=== PATIENT | male | born 1940 | race Asian ===

== ENCOUNTER 2022-03-25 14:21 | Inpatient (IN) | payer OTHER ==
[~2022-03-25] VITALS: Ht 162.6 cm; Wt 54.0 kg
[2022-03-25 14:27] VITALS: BP_SYST 158
[2022-03-25] MEDS ORDERED: methylPREDNISolone SOD SUCC/PF 62.5 MG/ML VIAL IVP ONE (15:30)
[2022-03-25] MEDS ORDERED: IPRATROPIUM/ALBUTEROL SULFATE 3 ML AMPUL.NEB (DUONEB) INH ONE (15:30)
[2022-03-25 16:04] LABS: BASOPHILS % (AUTO) 0.3 % (0.0-2.0); EOSINOPHILS % (AUTO) 0.1 % (0.0-4.0); HEMATOCRIT 39.4 % (36-54); HEMOGLOBIN 13.4 g/dL (14.0-18.0); LYMPHOCYTES # (AUTO) 0.6 K/uL (1.0-5.5); MEAN CORPUSCULAR HEMOGLOBIN 32 pg (27-31); MEAN CORPUSCULAR HGB CONC 34 % (32-36); MEAN CORPUSCULAR VOLUME 95 fL (79.0-98.0); MONOCYTES # (AUTO) 0.5 K/uL (0.0-1.0); MONOCYTES % (AUTO) 5.1 % (1.7-9.3); NEUTROPHILS # (AUTO) 7.9 K/uL (1.8-7.7); NEUTROPHILS % (AUTO) 87.5 % (40.0-70.0); PLATELET COUNT (AUTO) 219 K/uL (130-430); RED BLOOD CELL COUNT(AUTO) 4.16 MIL/uL (4.2-6.2); RED CELL DISTRIBUTION WIDTH 13.1 % (9.0-15.0)
[2022-03-25 16:14] LABS: ANION GAP 10 (5-15); CALCIUM 8.4 mg/dL (8.4-11.0); CHLORIDE 100 mmol/L (98-107); CREATININE 0.75 mg/dL (0.55-1.30); GLUCOSE 97 mg/dL (70-99); POTASSIUM 3.2 mmol/L (3.5-5.1); PROTHROMBIN TIME 9.7 SECS (9.5-12.5); SODIUM SERUM 135 mmol/L (136-145); UREA NITROGEN, BLOOD 13 mg/dL (8-21)
[2022-03-25 16:38] LABS: ALANINE AMINOTRANSFERASE 37 U/L (12-78); ALBUMIN 3.2 g/dL (3.4-4.8); ASPARTATE AMINOTRANSFERASE 32 U/L (10-37); LIPASE 152 U/L (73-393)
[2022-03-25] MEDS ORDERED: LORazepam 2 MG/ML VIAL IVP ONE (17:00)
[2022-03-25 20:39] LABS: BILIRUBIN,URINE NEGATIVE (NEGATIVE); BLOOD, URINE NEGATIVE (NEGATIVE); CLARITY/URINE CLEAR (CLEAR); COLOR,URINE YELLOW (YELLOW); GLUCOSE,URINE NEGATIVE (NEGATIVE); KETONES,URINE NEGATIVE (NEGATIVE); LEUKOCYTE ESTERASE ,URINE NEGATIVE (NEGATIVE); NITRITE, URINE NEGATIVE (NEGATIVE); PH,URINE 6.5 (5.0-8.0); PROTEIN URINE NEGATIVE (NEGATIVE); UROBILINOGEN,URINE 0.2 (0.2-1.0)
[2022-03-25] MEDS ORDERED: LABETALOL HCL 20 MG/4 ML CARTRIDGE IVP ONE ×2 (21:15→22:45)
[2022-03-25] MEDS ORDERED: cefTRIAXone 1 GM IVPB PREMIX 50 ML IV ONE (21:45)
[2022-03-25] MEDS ORDERED: POTASSIUM CHLORIDE 20 MEQ/PKT PACKET PO ONE (21:45)
[2022-03-25] MEDS ORDERED: NACL 0.9% 1,000 ML IV ONE (21:45)
[2022-03-25] MEDS: NACL 0.9% 1,000 ML IV SCH (22:30)
[2022-03-25] MEDS ORDERED: METOPROLOL TARTRATE 25 MG TABLET PO ONE (22:30)
[2022-03-25] MEDS ORDERED: hydrALAZINE HCL 20 MG/ML VIAL IVP ONE (22:45)
[2022-03-25] MEDS: IPRATROPIUM/ALBUTEROL SULFATE 3 ML AMPUL.NEB (DUONEB) INH PRN (22:56)
[2022-03-26 00:13] VITALS: BP_SYST 160
[2022-03-26 01:00] VITALS: BP_SYST 168
[2022-03-26] MEDS ORDERED: cloNIDine HCL 0.2 MG TABLET PO PRN ×2 (02:00→02:45)
[2022-03-26 04:15] VITALS: BP_SYST 193
[2022-03-26] MEDS: IPRATROPIUM/ALBUTEROL SULFATE 3 ML AMPUL.NEB (DUONEB) INH PRN (05:19)
[2022-03-26 06:52] LABS: BASOPHILS % (AUTO) 0.1 % (0.0-2.0); HEMOGLOBIN 13.5 g/dL (14.0-18.0); LYMPHOCYTES # (AUTO) 0.7 K/uL (1.0-5.5); LYMPHOCYTES % (AUTO) 9.7 % (20.5-51.5); MEAN CORPUSCULAR HEMOGLOBIN 33 pg (27-31); MEAN CORPUSCULAR HGB CONC 35 % (32-36); MEAN CORPUSCULAR VOLUME 95 fL (79.0-98.0); MONOCYTES % (AUTO) 0.7 % (1.7-9.3); NEUTROPHILS # (AUTO) 6.1 K/uL (1.8-7.7); NEUTROPHILS % (AUTO) 89.5 % (40.0-70.0); PLATELET COUNT (AUTO) 204 K/uL (130-430); RED BLOOD CELL COUNT(AUTO) 4.13 MIL/uL (4.2-6.2); WHITE BLOOD COUNT (AUTO) 6.8 K/uL (4.8-10.8)
[2022-03-26 07:28] LABS: ANION GAP 13 (5-15); CALCIUM 7.9 mg/dL (8.4-11.0); CHLORIDE 103 mmol/L (98-107); CREATININE 0.77 mg/dL (0.55-1.30); GLUCOSE 122 mg/dL (70-99); POTASSIUM 3.9 mmol/L (3.5-5.1); SODIUM SERUM 137 mmol/L (136-145); UREA NITROGEN, BLOOD 17 mg/dL (8-21)
[2022-03-26] MEDS: METOPROLOL TARTRATE 25 MG TABLET PO SCH ×2 (08:55→20:39)
[2022-03-26] MEDS: HYDROCHLOROTHIAZIDE 25 MG TABLET (HCTZ) PO SCH (08:55)
[2022-03-26] MEDS: lisinopriL 20 MG TABLET PO SCH (08:56)
[2022-03-26 11:31] VITALS: BP_SYST 156
[2022-03-26] MEDS ORDERED: DILT180C67 PO (11:37)
[2022-03-26] MEDS ORDERED: LISI20TA30 PO (11:37)
[2022-03-26] MEDS ORDERED: MONT10TA22 (11:40)
[2022-03-26] MEDS ORDERED: ALBMDI INH (11:40)
[2022-03-26] MEDS ORDERED: VITD2000 PO (11:44)
[2022-03-26] MEDS ORDERED: ROFL500T PO (11:44)
[2022-03-26] MEDS ORDERED: BETA1TAB20 PO (11:44)
[2022-03-26] MEDS ORDERED: PRED5TAB PO (11:44)
[2022-03-26] MEDS ORDERED: PANT40SU2 (11:44)
[2022-03-26] MEDS ORDERED: IPRA3AMP9 INH (11:44)
[2022-03-26] MEDS ORDERED: OMEG10006 PO (11:44)
[2022-03-26] MEDS ORDERED: VITA1CAP PO (11:44)
[2022-03-26] MEDS ORDERED: TAMS-11 PO (11:44)
[2022-03-26] MEDS ORDERED: LIPA1CAP13 PO (11:48)
[2022-03-26] MEDS ORDERED: SERT-436 PO (12:30)
[2022-03-26 16:02] VITALS: BP_SYST 141
[2022-03-26] MEDS: NACL 0.9% 1,000 ML IV SCH (20:04)
[2022-03-26] MEDS: predniSONE 20 MG TABLET PO SCH (20:05)
[2022-03-26 20:31] VITALS: BP_SYST 155
[2022-03-26] MEDS ORDERED: ZOLPIDEM TARTRATE 5 MG TABLET PO PRN (22:45)
[2022-03-27 00:07] VITALS: BP_SYST 126
[2022-03-27 01:44] VITALS: BP_SYST 132
[2022-03-27] MEDS: IPRATROPIUM/ALBUTEROL SULFATE 3 ML AMPUL.NEB (DUONEB) INH PRN (02:08)
[2022-03-27] MEDS: NACL 0.9% 1,000 ML IV SCH (03:06)
[2022-03-27 06:46] LABS: BASOPHILS % (AUTO) 0.1 % (0.0-2.0); HEMATOCRIT 40.6 % (36-54); HEMOGLOBIN 13.8 g/dL (14.0-18.0); LYMPHOCYTES # (AUTO) 1.5 K/uL (1.0-5.5); LYMPHOCYTES % (AUTO) 12.1 % (20.5-51.5); MEAN CORPUSCULAR HEMOGLOBIN 32 pg (27-31); MEAN CORPUSCULAR HGB CONC 34 % (32-36); MEAN CORPUSCULAR VOLUME 95 fL (79.0-98.0); MONOCYTES # (AUTO) 0.8 K/uL (0.0-1.0); NEUTROPHILS # (AUTO) 10.4 K/uL (1.8-7.7); NEUTROPHILS % (AUTO) 81.8 % (40.0-70.0); PLATELET COUNT (AUTO) 223 K/uL (130-430); RED BLOOD CELL COUNT(AUTO) 4.26 MIL/uL (4.2-6.2); RED CELL DISTRIBUTION WIDTH 13.1 % (9.0-15.0); WHITE BLOOD COUNT (AUTO) 12.8 K/uL (4.8-10.8)
[2022-03-27 08:50] LABS: ANION GAP 11 (5-15); CALCIUM 7.9 mg/dL (8.4-11.0); CHLORIDE 102 mmol/L (98-107); CREATININE 0.74 mg/dL (0.55-1.30); GLUCOSE 76 mg/dL (70-99); SODIUM SERUM 137 mmol/L (136-145); UREA NITROGEN, BLOOD 23 mg/dL (8-21)
[2022-03-27 09:23] LABS: POTASSIUM 2.7 mmol/L (3.5-5.1)
[2022-03-27] MEDS ORDERED: POTASSIUM CHLORIDE 20 MEQ TAB.PRT.SR PO ONE (09:30)
[2022-03-27] MEDS: HYDROCHLOROTHIAZIDE 25 MG TABLET (HCTZ) PO SCH (09:32)
[2022-03-27] MEDS: lisinopriL 20 MG TABLET PO SCH (09:33)
[2022-03-27] MEDS: predniSONE 20 MG TABLET PO SCH (09:33)
[2022-03-27] MEDS: METOPROLOL TARTRATE 25 MG TABLET PO SCH (09:33)
[2022-03-27] MEDS ORDERED: LISI10TA29 PO (09:36)
[2022-03-27] MEDS ORDERED: PRED10TA PO ×2 (09:36)
[2022-03-27] MEDS ORDERED: PRED20TA PO (09:42)
[2022-03-27 12:45] VITALS: BP_SYST 178
[2022-03-27] MEDS ORDERED: hydrALAZINE HCL 20 MG/ML VIAL IVP ONE (15:45)
[2022-03-27 15:50] VITALS: BP_SYST 147
[2022-03-27 16:20] VITALS: BP_SYST 159
== END 2022-03-27 17:00 | disposition home health service (06) | DRG 189 ==
LOC: EDBD 14:21 → SED 14:21 → EDSEX 14:21 → STU 22:19
PROVIDERS: ADMIT General Practice; ATTEND General Practice
DX: J96.00 Acute respiratory failure, unspecified whether with hypoxia or hypercapnia (principal); G93.41 Metabolic encephalopathy; J44.1 Chronic obstructive pulmonary disease with (acute) exacerbation; E44.0 Moderate protein-calorie malnutrition; E87.2 Acidosis; E87.6 Hypokalemia; Z20.822 Contact with and (suspected) exposure to COVID-19; I10 Essential (primary) hypertension; Z86.73 Personal history of transient ischemic attack (TIA), and cerebral infarction without residual deficits; Z87.891 Personal history of nicotine dependence; Z99.81 Dependence on supplemental oxygen; Z68.20 Body mass index [BMI] 20.0-20.9, adult
CPT/HCPCS: 36415; 36600; 70450-TC; 71045; 71250-TC; 76376; 80048; 80053; 81003; 82803-TC; 83036; 83605; 83690; 83735; 83880; 84484; 85025; 85610-TC; 85730-TC; 87040; 87086; 93005; 94640; 96374; 96375; 99291; G0378; J0360; J0696; J2060; J2930; J7512

== ENCOUNTER 2023-09-04 15:06 | Inpatient (IN) | payer OTHER ==
[~2023-09-04] VITALS: Ht 162.6 cm; Wt 63.5 kg
[~2023-09-04 15:06] MED LIST: ALBMDI INH; BETA1TAB20 PO; DILT180C67 PO; IPRA3AMP9 INH; LIPA1CAP13 PO; LISI10TA29 PO; LISI20TA30 PO; MONT-47; OMEG10006 PO; PANT40SU2; PRED20TA PO; PRED5TAB PO; ROFL500T PO; SERT-436 PO; TAMS-11 PO; VITA1CAP PO; VITD2000 PO
[2023-09-04 15:10] VITALS: RESP 19; TEMP 98; O2SAT 95
[2023-09-04] MEDS ORDERED: ALBUTEROL SULFATE 0.083% 2.5 MG/3 ML VIAL.NEB INH ONE ×2 (15:30→18:00)
[2023-09-04] MEDS ORDERED: methylPREDNISolone SOD SUCC/PF 62.5 MG/ML VIAL IVP ONE (15:30)
[2023-09-04] MEDS ORDERED: IPRATROPIUM BROM 0.5 MG/2.5 ML VIAL.NEB (ATROVENT) INH ONE ×2 (15:30→18:00)
[2023-09-04] MEDS ORDERED: MAGNESIUM SULFATE 50 ML IV ONE (15:45)
[2023-09-04 16:42] LABS: BASOPHILS % (AUTO) 0.2 % (0.0-2.0); EOSINOPHILS % (AUTO) 0.2 % (0.0-4.0); HEMATOCRIT 38.9 % (36-54); HEMOGLOBIN 13.6 g/dL (14.0-18.0); LYMPHOCYTES # (AUTO) 1.8 K/uL (1.0-5.5); LYMPHOCYTES % (AUTO) 19.2 % (20.5-51.5); MEAN CORPUSCULAR HEMOGLOBIN 33 pg (27-31); MEAN CORPUSCULAR HGB CONC 35 % (32-36); MEAN CORPUSCULAR VOLUME 95 fL (79.0-98.0); MONOCYTES # (AUTO) 0.9 K/uL (0.0-1.0); MONOCYTES % (AUTO) 9.5 % (1.7-9.3); NEUTROPHILS # (AUTO) 6.5 K/uL (1.8-7.7); NEUTROPHILS % (AUTO) 70.9 % (40.0-70.0); PLATELET COUNT (AUTO) 190 K/uL (130-430); RED CELL DISTRIBUTION WIDTH 12.9 % (9.0-15.0); WHITE BLOOD COUNT (AUTO) 9.2 K/uL (4.8-10.8)
[2023-09-04 16:50] LABS: ALANINE AMINOTRANSFERASE 65 U/L (12-78); ALBUMIN 2.7 g/dL (3.4-4.8); ANION GAP 17 (5-15); ASPARTATE AMINOTRANSFERASE 112 U/L (10-37); BILIRUBIN,DIRECT 0.5 mg/dL (0.0-0.3); CARBON DIOXIDE 22 mmol/L (23-29); CHLORIDE 97 mmol/L (98-107); CREATININE 1.41 mg/dL (0.55-1.30); GLUCOSE 65 mg/dL (74-106); SODIUM SERUM 136 mmol/L (136-145); TOTAL BILIRUBIN 1.3 mg/dL (0.0-1.0); TOTAL PROTEIN, SERUM 6.3 g/dL (6.4-8.3); UREA NITROGEN, BLOOD 23 mg/dL (8-21)
[2023-09-04 16:54] LABS: POTASSIUM 2.6 mmol/L (3.5-5.1)
[2023-09-04] MEDS ORDERED: POTASSIUM CHLORIDE 20 MEQ/PKT PACKET PO ONE (17:15)
[2023-09-04 18:20] LABS: THYROID STIMULATING HORMONE 0.55 uIu/mL (0.34-4.82)
[2023-09-04] MEDS ORDERED: cefTRIAXone 1 GM IVPB PREMIX 50 ML IV ONE (18:30)
[2023-09-04] MEDS ORDERED: IPRATROPIUM/ALBUTEROL SULFATE 3 ML AMPUL.NEB (DUONEB) INH ONE (19:30)
[2023-09-04 20:38] LABS: INFLUENZA TYPE A Negative (NEGATIVE); INFLUENZA TYPE B NEGATIVE (NEGATIVE)
[2023-09-05] VITALS (7 sets, daily range): BP systolic 150–157; PULSE 90–99; RESP 19–24; TEMP 97.2–98.3; O2SAT 92–100
[2023-09-05 08:16] LABS: BASOPHILS % (AUTO) 0.1 % (0.0-2.0); HEMATOCRIT 40.1 % (36-54); HEMOGLOBIN 13.8 g/dL (14.0-18.0); LYMPHOCYTES # (AUTO) 0.5 K/uL (1.0-5.5); LYMPHOCYTES % (AUTO) 5.9 % (20.5-51.5); MEAN CORPUSCULAR HEMOGLOBIN 33 pg (27-31); MEAN CORPUSCULAR HGB CONC 34 % (32-36); MEAN CORPUSCULAR VOLUME 95 fL (79.0-98.0); MONOCYTES # (AUTO) 0.1 K/uL (0.0-1.0); MONOCYTES % (AUTO) 1.9 % (1.7-9.3); NEUTROPHILS # (AUTO) 7.3 K/uL (1.8-7.7); NEUTROPHILS % (AUTO) 92.1 % (40.0-70.0); PLATELET COUNT (AUTO) 218 K/uL (130-430); RED BLOOD CELL COUNT(AUTO) 4.23 MIL/uL (4.2-6.2); RED CELL DISTRIBUTION WIDTH 12.9 % (9.0-15.0); WHITE BLOOD COUNT (AUTO) 7.9 K/uL (4.8-10.8)
[2023-09-05 08:38] LABS: ALANINE AMINOTRANSFERASE 78 U/L (12-78); ALBUMIN 2.8 g/dL (3.4-4.8); ANION GAP 14 (5-15); ASPARTATE AMINOTRANSFERASE 132 U/L (10-37); CALCIUM 9.1 mg/dL (8.4-11.0); CARBON DIOXIDE 22 mmol/L (23-29); CHLORIDE 101 mmol/L (98-107); GLUCOSE 113 mg/dL (74-106); POTASSIUM 4.8 mmol/L (3.5-5.1); SODIUM SERUM 137 mmol/L (136-145); TOTAL BILIRUBIN 0.8 mg/dL (0.0-1.0); TOTAL PROTEIN, SERUM 6.7 g/dL (6.4-8.3); UREA NITROGEN, BLOOD 35 mg/dL (8-21)
[2023-09-05] MEDS ORDERED: cefTRIAXone 1 GM IVPB PREMIX 50 ML IV SCH (09:00)
[2023-09-05 13:35] LABS: BLOOD GAS BASE EXCESS -4.5 mmol/L (-3.0-3.0); BLOOD GAS HCO3 19.6 mmol/L (21.0-27.0); BLOOD GAS PCO2 33.5 mmHg (32.0-45.0); BLOOD GAS PH 7.384 (7.350-7.450); BLOOD GAS PO2 152.8 mmHg (75.0-100.0)
[2023-09-05] MEDS ORDERED: IPRATROPIUM/ALBUTEROL SULFATE 3 ML AMPUL.NEB (DUONEB) ONE (13:42)
[2023-09-05] MEDS ORDERED: ALBUTEROL SULFATE 0.083% 2.5 MG/3 ML VIAL.NEB INH PRN (13:45)
[2023-09-05 13:56] LABS: ALLEN'S TEST POSITIVE (P)
[2023-09-05] MEDS ORDERED: AZITHROMYCIN 500 MG in NS 250 ML IV ONE (14:00)
[2023-09-05] MEDS ORDERED: methylPREDNISolone SOD SUCC/PF 62.5 MG/ML VIAL IVP ONE (14:00)
[2023-09-05] MEDS: IPRATROPIUM/ALBUTEROL SULFATE 3 ML AMPUL.NEB (DUONEB) INH SCH ×2 (16:41→19:41)
[2023-09-05] MEDS: methylPREDNISolone SOD SUCC/PF 62.5 MG/ML VIAL IVP SCH (18:07)
[2023-09-05] MEDS: BUDESONIDE 0.5 MG/2 ML AMPUL.NEB INH SCH (19:41)
[2023-09-05] MEDS: PIPERACILLIN/TAZO 2.25G/DEX-IS 50 ML IV SCH (19:44)
[2023-09-06] VITALS (8 sets, daily range): BP systolic 143–152; PULSE 101–109; RESP 18–20; TEMP 97.7–99; O2SAT 93–98
[2023-09-06] MEDS: IPRATROPIUM/ALBUTEROL SULFATE 3 ML AMPUL.NEB (DUONEB) INH SCH ×7 (00:10→23:39)
[2023-09-06] MEDS: methylPREDNISolone SOD SUCC/PF 62.5 MG/ML VIAL IVP SCH ×4 (00:48→19:12)
[2023-09-06] MEDS: PIPERACILLIN/TAZO 2.25G/DEX-IS 50 ML IV SCH ×4 (00:49→19:12)
[2023-09-06 06:14] LABS: BASOPHILS % (AUTO) 0.1 % (0.0-2.0); HEMOGLOBIN 13.3 g/dL (14.0-18.0); MEAN CORPUSCULAR VOLUME 95 fL (79.0-98.0); NEUTROPHILS % (AUTO) 92.6 % (40.0-70.0)
[2023-09-06 06:18] LABS: ANION GAP 18 (5-15); CALCIUM 8.8 mg/dL (8.4-11.0); CARBON DIOXIDE 20 mmol/L (23-29); CHLORIDE 104 mmol/L (98-107); CREATININE 1.36 mg/dL (0.55-1.30); GLUCOSE 74 mg/dL (74-106); POTASSIUM 4.3 mmol/L (3.5-5.1); SODIUM SERUM 142 mmol/L (136-145); UREA NITROGEN, BLOOD 50 mg/dL (8-21)
[2023-09-06 06:23] LABS: ALANINE AMINOTRANSFERASE 88 U/L (12-78); ALBUMIN 2.7 g/dL (3.4-4.8); ASPARTATE AMINOTRANSFERASE 157 U/L (10-37); LACTATE DEHYDROGENASE 384 U/L (85-227); TOTAL BILIRUBIN 0.7 mg/dL (0.0-1.0); TOTAL PROTEIN, SERUM 6.3 g/dL (6.4-8.3)
[2023-09-06 07:33] LABS: WHITE BLOOD COUNT (AUTO) 13.7 K/uL (4.8-10.8)
[2023-09-06 07:34] LABS: HEMATOCRIT 38.9 % (36-54); MEAN CORPUSCULAR HEMOGLOBIN 32 pg (27-31); MEAN CORPUSCULAR HGB CONC 34 % (32-36); PLATELET COUNT (AUTO) 255 K/uL (130-430); RED BLOOD CELL COUNT(AUTO) 4.11 MIL/uL (4.2-6.2); RED CELL DISTRIBUTION WIDTH 12.9 % (9.0-15.0)
[2023-09-06 07:35] LABS: MONOCYTES % (AUTO) 3.3 % (1.7-9.3); NEUTROPHILS # (AUTO) 12.7 K/uL (1.8-7.7)
[2023-09-06 07:36] LABS: LYMPHOCYTES # (AUTO) 0.5 K/uL (1.0-5.5); MONOCYTES # (AUTO) 0.5 K/uL (0.0-1.0)
[2023-09-06] MEDS: BUDESONIDE 0.5 MG/2 ML AMPUL.NEB INH SCH ×2 (07:50→19:30)
[2023-09-06] MEDS: ASCORBIC ACID 500 MG TABLET PO SCH ×2 (10:00→20:46)
[2023-09-06] MEDS: CHOLECALCIFEROL (VITAMIN D3) 2,000 UNIT TABLET PO SCH (10:00)
[2023-09-06] MEDS: AZITHROMYCIN 250 MG in NS 250 ML IV SCH (14:41)
[2023-09-07] VITALS (10 sets, daily range): BP systolic 141–149; PULSE 87–108; RESP 18–20; TEMP 98–98.6; O2SAT 93–97
[2023-09-07] MEDS: IPRATROPIUM/ALBUTEROL SULFATE 3 ML AMPUL.NEB (DUONEB) INH SCH ×6 (03:32→23:40)
[2023-09-07] MEDS: PIPERACILLIN/TAZO 2.25G/DEX-IS 50 ML IV SCH ×4 (06:00→17:10)
[2023-09-07] MEDS: methylPREDNISolone SOD SUCC/PF 62.5 MG/ML VIAL IVP SCH ×4 (06:00→17:09)
[2023-09-07 07:01] LABS: ALANINE AMINOTRANSFERASE 94 U/L (12-78); ALBUMIN 2.7 g/dL (3.4-4.8); ANION GAP 17 (5-15); ASPARTATE AMINOTRANSFERASE 119 U/L (10-37); CALCIUM 8.9 mg/dL (8.4-11.0); CARBON DIOXIDE 23 mmol/L (23-29); CHLORIDE 110 mmol/L (98-107); CREATININE 1.16 mg/dL (0.55-1.30); GLUCOSE 101 mg/dL (74-106); PHOSPHORUS 2.6 mg/dL (2.7-4.5); POTASSIUM 4.2 mmol/L (3.5-5.1); SODIUM SERUM 150 mmol/L (136-145); TOTAL BILIRUBIN 0.9 mg/dL (0.0-1.0); UREA NITROGEN, BLOOD 50 mg/dL (8-21)
[2023-09-07] MEDS: BUDESONIDE 0.5 MG/2 ML AMPUL.NEB INH SCH ×2 (07:30→20:05)
[2023-09-07 08:31] LABS: HEMATOCRIT 40.5 % (36-54); HEMOGLOBIN 13.6 g/dL (14.0-18.0); LYMPHOCYTES # (AUTO) 0.3 K/uL (1.0-5.5); LYMPHOCYTES % (AUTO) 2.2 % (20.5-51.5); MEAN CORPUSCULAR HEMOGLOBIN 32 pg (27-31); MEAN CORPUSCULAR HGB CONC 34 % (32-36); MEAN CORPUSCULAR VOLUME 96 fL (79.0-98.0); MONOCYTES # (AUTO) 0.7 K/uL (0.0-1.0); MONOCYTES % (AUTO) 5.9 % (1.7-9.3); NEUTROPHILS # (AUTO) 11.5 K/uL (1.8-7.7); NEUTROPHILS % (AUTO) 91.9 % (40.0-70.0); PLATELET COUNT (AUTO) 275 K/uL (130-430); RED BLOOD CELL COUNT(AUTO) 4.23 MIL/uL (4.2-6.2); RED CELL DISTRIBUTION WIDTH 12.9 % (9.0-15.0); WHITE BLOOD COUNT (AUTO) 12.5 K/uL (4.8-10.8)
[2023-09-07] MEDS: CHOLECALCIFEROL (VITAMIN D3) 2,000 UNIT TABLET PO SCH (09:18)
[2023-09-07] MEDS: ASCORBIC ACID 500 MG TABLET PO SCH ×2 (09:18→20:33)
[2023-09-07 10:02] LABS: ABG O2 SAT% ESTIMATE 97.8 % (94.0-100.0); BLOOD GAS BASE EXCESS 2.4 mmol/L (-3.0-3.0); BLOOD GAS HCO3 24.8 mmol/L (21.0-27.0); BLOOD GAS PCO2 32.1 mmHg (32.0-45.0); BLOOD GAS PO2 94.1 mmHg (75.0-100.0)
[2023-09-07 10:08] LABS: BLOOD GAS PH 7.505 (7.350-7.450)
[2023-09-07] MEDS: AZITHROMYCIN 250 MG in NS 250 ML IV SCH (13:45)
[2023-09-07] MEDS: FAMOTIDINE PF 20 MG/2 ML VIAL IVP SCH (17:09)
[2023-09-08] VITALS (13 sets, daily range): BP systolic 138–147; PULSE 103–118; RESP 19–20; TEMP 97.6–98.6; O2SAT 93–98
[2023-09-08] MEDS: methylPREDNISolone SOD SUCC/PF 62.5 MG/ML VIAL IVP SCH ×4 (01:20→19:03)
[2023-09-08] MEDS: PIPERACILLIN/TAZO 2.25G/DEX-IS 50 ML IV SCH ×5 (01:21→23:52)
[2023-09-08] MEDS: IPRATROPIUM/ALBUTEROL SULFATE 3 ML AMPUL.NEB (DUONEB) INH SCH ×6 (03:16→23:25)
[2023-09-08 05:58] LABS: EOSINOPHILS % (AUTO) 0.1 % (0.0-4.0); HEMOGLOBIN 14.9 g/dL (14.0-18.0); LYMPHOCYTES # (AUTO) 0.3 K/uL (1.0-5.5); LYMPHOCYTES % (AUTO) 3.1 % (20.5-51.5); MEAN CORPUSCULAR HEMOGLOBIN 33 pg (27-31); MEAN CORPUSCULAR HGB CONC 35 % (32-36); MEAN CORPUSCULAR VOLUME 95 fL (79.0-98.0); MONOCYTES # (AUTO) 0.3 K/uL (0.0-1.0); MONOCYTES % (AUTO) 2.6 % (1.7-9.3); NEUTROPHILS # (AUTO) 10.5 K/uL (1.8-7.7); NEUTROPHILS % (AUTO) 94.2 % (40.0-70.0); PLATELET COUNT (AUTO) 252 K/uL (130-430); RED BLOOD CELL COUNT(AUTO) 4.55 MIL/uL (4.2-6.2); WHITE BLOOD COUNT (AUTO) 11.2 K/uL (4.8-10.8)
[2023-09-08 06:27] LABS: ANION GAP 15 (5-15); CALCIUM 8.3 mg/dL (8.4-11.0); CARBON DIOXIDE 27 mmol/L (23-29); CHLORIDE 110 mmol/L (98-107); GLUCOSE 122 mg/dL (74-106); POTASSIUM 3.9 mmol/L (3.5-5.1); SODIUM SERUM 152 mmol/L (136-145); UREA NITROGEN, BLOOD 44 mg/dL (8-21)
[2023-09-08] MEDS: BUDESONIDE 0.5 MG/2 ML AMPUL.NEB INH SCH ×2 (07:47→19:56)
[2023-09-08] MEDS: CHOLECALCIFEROL (VITAMIN D3) 2,000 UNIT TABLET PO SCH (09:40)
[2023-09-08] MEDS: ASCORBIC ACID 500 MG TABLET PO SCH ×2 (09:40→20:36)
[2023-09-08] MEDS: AZITHROMYCIN 250 MG in NS 250 ML IV SCH (15:03)
[2023-09-08] MEDS: FAMOTIDINE PF 20 MG/2 ML VIAL IVP SCH (17:12)
[2023-09-09] VITALS (11 sets, daily range): BP systolic 124–155; PULSE 77–114; RESP 20–22; TEMP 97.3–98.8; O2SAT 95–100
[2023-09-09] MEDS: methylPREDNISolone SOD SUCC/PF 62.5 MG/ML VIAL IVP SCH ×5 (00:29→23:46)
[2023-09-09] MEDS: IPRATROPIUM/ALBUTEROL SULFATE 3 ML AMPUL.NEB (DUONEB) INH SCH ×6 (04:11→23:20)
[2023-09-09] MEDS: PIPERACILLIN/TAZO 2.25G/DEX-IS 50 ML IV SCH ×4 (05:53→23:46)
[2023-09-09] MEDS: BUDESONIDE 0.5 MG/2 ML AMPUL.NEB INH SCH ×2 (07:38→19:25)
[2023-09-09] MEDS: ASCORBIC ACID 500 MG TABLET PO SCH ×2 (10:24→21:10)
[2023-09-09] MEDS: CHOLECALCIFEROL (VITAMIN D3) 2,000 UNIT TABLET PO SCH (10:24)
[2023-09-09] MEDS: AZITHROMYCIN 250 MG in NS 250 ML IV SCH (13:34)
[2023-09-09] MEDS: FAMOTIDINE PF 20 MG/2 ML VIAL IVP SCH (17:35)
[2023-09-10] VITALS (12 sets, daily range): BP systolic 149–158; PULSE 89–104; RESP 16–21; TEMP 97.7–98.2; O2SAT 92–99
[2023-09-10] MEDS: IPRATROPIUM/ALBUTEROL SULFATE 3 ML AMPUL.NEB (DUONEB) INH SCH ×5 (03:19→23:12)
[2023-09-10] MEDS: methylPREDNISolone SOD SUCC/PF 62.5 MG/ML VIAL IVP SCH ×3 (06:05→17:31)
[2023-09-10] MEDS: PIPERACILLIN/TAZO 2.25G/DEX-IS 50 ML IV SCH ×3 (06:05→17:31)
[2023-09-10 06:16] LABS: BASOPHILS % (AUTO) 0.1 % (0.0-2.0); HEMATOCRIT 41.1 % (36-54); HEMOGLOBIN 14.1 g/dL (14.0-18.0); LYMPHOCYTES # (AUTO) 0.3 K/uL (1.0-5.5); LYMPHOCYTES % (AUTO) 3.3 % (20.5-51.5); MEAN CORPUSCULAR HEMOGLOBIN 33 pg (27-31); MEAN CORPUSCULAR HGB CONC 34 % (32-36); MEAN CORPUSCULAR VOLUME 95 fL (79.0-98.0); MONOCYTES # (AUTO) 0.3 K/uL (0.0-1.0); MONOCYTES % (AUTO) 3.6 % (1.7-9.3); NEUTROPHILS # (AUTO) 7.4 K/uL (1.8-7.7); PLATELET COUNT (AUTO) 166 K/uL (130-430); RED BLOOD CELL COUNT(AUTO) 4.34 MIL/uL (4.2-6.2); RED CELL DISTRIBUTION WIDTH 12.7 % (9.0-15.0); WHITE BLOOD COUNT (AUTO) 7.9 K/uL (4.8-10.8)
[2023-09-10 06:42] LABS: ALANINE AMINOTRANSFERASE 67 U/L (12-78); ALBUMIN 2.4 g/dL (3.4-4.8); ANION GAP 10 (5-15); ASPARTATE AMINOTRANSFERASE 48 U/L (10-37); CALCIUM 7.8 mg/dL (8.4-11.0); CARBON DIOXIDE 30 mmol/L (23-29); CHLORIDE 108 mmol/L (98-107); CREATININE 0.92 mg/dL (0.55-1.30); GLUCOSE 144 mg/dL (74-106); PHOSPHORUS 2.1 mg/dL (2.7-4.5); SODIUM SERUM 148 mmol/L (136-145); TOTAL BILIRUBIN 1.7 mg/dL (0.0-1.0); TOTAL PROTEIN, SERUM 4.9 g/dL (6.4-8.3); UREA NITROGEN, BLOOD 32 mg/dL (8-21)
[2023-09-10 06:51] LABS: POTASSIUM 2.8 mmol/L (3.5-5.1)
[2023-09-10] MEDS ORDERED: POTASSIUM CHLORIDE 40 MEQ in NS 250 ML IV ONE (07:00)
[2023-09-10] MEDS: BUDESONIDE 0.5 MG/2 ML AMPUL.NEB INH SCH ×2 (08:33→19:44)
[2023-09-10] MEDS: ASCORBIC ACID 500 MG TABLET PO SCH ×2 (09:05→23:02)
[2023-09-10] MEDS: CHOLECALCIFEROL (VITAMIN D3) 2,000 UNIT TABLET PO SCH (09:05)
[2023-09-10] MEDS: AZITHROMYCIN 250 MG in NS 250 ML IV SCH (14:20)
[2023-09-10] MEDS: FAMOTIDINE PF 20 MG/2 ML VIAL IVP SCH (17:31)
[2023-09-11] VITALS (14 sets, daily range): BP systolic 138–155; PULSE 98–112; RESP 17–20; TEMP 97.6–98.1; O2SAT 92–99
[2023-09-11] MEDS: methylPREDNISolone SOD SUCC/PF 62.5 MG/ML VIAL IVP SCH ×3 (00:17→13:04)
[2023-09-11] MEDS: PIPERACILLIN/TAZO 2.25G/DEX-IS 50 ML IV SCH ×5 (00:18→23:00)
[2023-09-11] MEDS: IPRATROPIUM/ALBUTEROL SULFATE 3 ML AMPUL.NEB (DUONEB) INH SCH ×6 (03:22→23:07)
[2023-09-11] MEDS: BUDESONIDE 0.5 MG/2 ML AMPUL.NEB INH SCH ×2 (07:28→19:31)
[2023-09-11] MEDS: CHOLECALCIFEROL (VITAMIN D3) 2,000 UNIT TABLET PO SCH (09:44)
[2023-09-11] MEDS: ASCORBIC ACID 500 MG TABLET PO SCH ×2 (09:45→21:08)
[2023-09-11] MEDS: FAMOTIDINE PF 20 MG/2 ML VIAL IVP SCH (18:19)
[2023-09-11] MEDS: METHYLPREDNISOLONE SOD SUCC 40 MG/ML VIAL IVP SCH (21:08)
[2023-09-11] MEDS: cloNIDine HCL 0.1 MG TABLET PO PRN (23:00)
[2023-09-12] VITALS (15 sets, daily range): BP systolic 139–145; PULSE 92–99; RESP 18–19; TEMP 98–98.2; O2SAT 92–98
[2023-09-12] MEDS: IPRATROPIUM/ALBUTEROL SULFATE 3 ML AMPUL.NEB (DUONEB) INH SCH ×6 (04:03→22:54)
[2023-09-12] MEDS: PIPERACILLIN/TAZO 2.25G/DEX-IS 50 ML IV SCH ×3 (05:33→15:44)
[2023-09-12] MEDS: METHYLPREDNISOLONE SOD SUCC 40 MG/ML VIAL IVP SCH ×3 (05:33→21:23)
[2023-09-12] MEDS: BUDESONIDE 0.5 MG/2 ML AMPUL.NEB INH SCH ×2 (07:44→19:39)
[2023-09-12] MEDS: ASCORBIC ACID 500 MG TABLET PO SCH ×2 (08:37→21:23)
[2023-09-12] MEDS: CHOLECALCIFEROL (VITAMIN D3) 2,000 UNIT TABLET PO SCH (08:37)
[2023-09-12] MEDS: FAMOTIDINE PF 20 MG/2 ML VIAL IVP SCH (14:40)
[2023-09-13] VITALS (12 sets, daily range): BP systolic 134–170; PULSE 100–115; RESP 20–26; TEMP 97.3–98.8; O2SAT 94–99
[2023-09-13] MEDS: PIPERACILLIN/TAZO 2.25G/DEX-IS 50 ML IV SCH ×4 (00:51→16:09)
[2023-09-13] MEDS: IPRATROPIUM/ALBUTEROL SULFATE 3 ML AMPUL.NEB (DUONEB) INH SCH ×6 (03:41→23:07)
[2023-09-13] MEDS: METHYLPREDNISOLONE SOD SUCC 40 MG/ML VIAL IVP SCH ×2 (05:17→21:42)
[2023-09-13] MEDS: BUDESONIDE 0.5 MG/2 ML AMPUL.NEB INH SCH ×2 (07:46→20:31)
[2023-09-13] MEDS: ASCORBIC ACID 500 MG TABLET PO SCH ×2 (10:19→21:42)
[2023-09-13] MEDS: CHOLECALCIFEROL (VITAMIN D3) 2,000 UNIT TABLET PO SCH (10:19)
[2023-09-13] MEDS: FAMOTIDINE PF 20 MG/2 ML VIAL IVP SCH (16:09)
[2023-09-13] MEDS: MIRTAZAPINE 15 MG TABLET PO SCH (21:42)
[2023-09-14] VITALS (15 sets, daily range): BP systolic 134–169; PULSE 98–107; RESP 19–22; TEMP 97.6–98.2; O2SAT 95–99
[2023-09-14] MEDS: IPRATROPIUM/ALBUTEROL SULFATE 3 ML AMPUL.NEB (DUONEB) INH SCH ×6 (03:26→23:23)
[2023-09-14 06:18] LABS: BASOPHILS % (AUTO) 0.2 % (0.0-2.0); HEMATOCRIT 43.4 % (36-54); HEMOGLOBIN 14.6 g/dL (14.0-18.0); LYMPHOCYTES # (AUTO) 0.2 K/uL (1.0-5.5); MEAN CORPUSCULAR HEMOGLOBIN 32 pg (27-31); MEAN CORPUSCULAR HGB CONC 34 % (32-36); MEAN CORPUSCULAR VOLUME 95 fL (79.0-98.0); MONOCYTES # (AUTO) 0.5 K/uL (0.0-1.0); MONOCYTES % (AUTO) 2.2 % (1.7-9.3); NEUTROPHILS # (AUTO) 22.6 K/uL (1.8-7.7); NEUTROPHILS % (AUTO) 96.6 % (40.0-70.0); PLATELET COUNT (AUTO) 160 K/uL (130-430); RED BLOOD CELL COUNT(AUTO) 4.55 MIL/uL (4.2-6.2); RED CELL DISTRIBUTION WIDTH 12.7 % (9.0-15.0)
[2023-09-14] MEDS: PIPERACILLIN/TAZO 2.25G/DEX-IS 50 ML IV SCH ×5 (07:15→22:52)
[2023-09-14 07:20] LABS: ALANINE AMINOTRANSFERASE 70 U/L (12-78); ALBUMIN 2.3 g/dL (3.4-4.8); ANION GAP 8 (5-15); ASPARTATE AMINOTRANSFERASE 51 U/L (10-37); CALCIUM 8.8 mg/dL (8.4-11.0); CARBON DIOXIDE 30 mmol/L (23-29); CHLORIDE 105 mmol/L (98-107); CREATININE 0.87 mg/dL (0.55-1.30); GLUCOSE 158 mg/dL (74-106); POTASSIUM 3.8 mmol/L (3.5-5.1); SODIUM SERUM 143 mmol/L (136-145); TOTAL BILIRUBIN 1.6 mg/dL (0.0-1.0); TOTAL PROTEIN, SERUM 4.9 g/dL (6.4-8.3); UREA NITROGEN, BLOOD 27 mg/dL (8-21)
[2023-09-14] MEDS: BUDESONIDE 0.5 MG/2 ML AMPUL.NEB INH SCH ×2 (07:56→20:28)
[2023-09-14 08:56] LABS: WHITE BLOOD COUNT (AUTO) 23.4 K/uL (4.8-10.8)
[2023-09-14] MEDS: CHOLECALCIFEROL (VITAMIN D3) 2,000 UNIT TABLET PO SCH (08:56)
[2023-09-14] MEDS: METHYLPREDNISOLONE SOD SUCC 40 MG/ML VIAL IVP SCH ×2 (08:56→21:59)
[2023-09-14] MEDS: ASCORBIC ACID 500 MG TABLET PO SCH ×2 (08:56→21:58)
[2023-09-14] MEDS: FAMOTIDINE PF 20 MG/2 ML VIAL IVP SCH (17:55)
[2023-09-14] MEDS: MIRTAZAPINE 15 MG TABLET PO SCH (21:59)
[2023-09-14] MEDS: cloNIDine HCL 0.1 MG TABLET PO PRN (22:18)
[2023-09-15] VITALS (13 sets, daily range): BP systolic 128–150; PULSE 94–99; RESP 16–24; TEMP 96.8–98.5; O2SAT 92–98
[2023-09-15] MEDS: IPRATROPIUM/ALBUTEROL SULFATE 3 ML AMPUL.NEB (DUONEB) INH SCH ×6 (03:21→23:16)
[2023-09-15] MEDS: PIPERACILLIN/TAZO 2.25G/DEX-IS 50 ML IV SCH ×3 (05:50→17:06)
[2023-09-15] MEDS: BUDESONIDE 0.5 MG/2 ML AMPUL.NEB INH SCH ×2 (07:41→19:40)
[2023-09-15] MEDS: ASCORBIC ACID 500 MG TABLET PO SCH ×2 (08:47→21:26)
[2023-09-15] MEDS: METHYLPREDNISOLONE SOD SUCC 40 MG/ML VIAL IVP SCH ×2 (08:47→21:26)
[2023-09-15] MEDS: CHOLECALCIFEROL (VITAMIN D3) 2,000 UNIT TABLET PO SCH (08:47)
[2023-09-15] MEDS: FAMOTIDINE PF 20 MG/2 ML VIAL IVP SCH (17:00)
[2023-09-15] MEDS ORDERED: MILK OF MAGNESIA 30 ML UDC PO PRN (17:00)
[2023-09-15] MEDS: MIRTAZAPINE 15 MG TABLET PO SCH (21:26)
[2023-09-16] VITALS (12 sets, daily range): BP systolic 124–158; PULSE 47–106; RESP 16–28; TEMP 97.2–97.7; O2SAT 92–100
[2023-09-16] MEDS: PIPERACILLIN/TAZO 2.25G/DEX-IS 50 ML IV SCH ×5 (00:01→23:17)
[2023-09-16] MEDS: IPRATROPIUM/ALBUTEROL SULFATE 3 ML AMPUL.NEB (DUONEB) INH SCH ×6 (03:26→23:08)
[2023-09-16] MEDS: BUDESONIDE 0.5 MG/2 ML AMPUL.NEB INH SCH ×2 (07:31→19:34)
[2023-09-16] MEDS: CHOLECALCIFEROL (VITAMIN D3) 2,000 UNIT TABLET PO SCH (09:38)
[2023-09-16] MEDS: predniSONE 20 MG TABLET PO SCH (09:38)
[2023-09-16] MEDS: ASCORBIC ACID 500 MG TABLET PO SCH ×2 (09:38→21:07)
[2023-09-16] MEDS ORDERED: TAMSULOSIN HCL 0.4 MG CAP PO ONE (10:00)
[2023-09-16] MEDS ORDERED: LISINOPRIL 10 MG TABLET (PRINIVIL) PO ONE (10:00)
[2023-09-16] MEDS: FAMOTIDINE PF 20 MG/2 ML VIAL IVP SCH (18:40)
[2023-09-16] MEDS: MIRTAZAPINE 15 MG TABLET PO SCH (21:07)
[2023-09-17] VITALS (12 sets, daily range): BP systolic 103–130; PULSE 74–93; RESP 17–18; TEMP 96.9–98.4; O2SAT 90–99
[2023-09-17] MEDS: IPRATROPIUM/ALBUTEROL SULFATE 3 ML AMPUL.NEB (DUONEB) INH SCH ×6 (03:26→22:43)
[2023-09-17] MEDS: PIPERACILLIN/TAZO 2.25G/DEX-IS 50 ML IV SCH ×4 (05:06→23:55)
[2023-09-17 05:17] LABS: BASOPHILS % (AUTO) 0.1 % (0.0-2.0); LYMPHOCYTES # (AUTO) 0.6 K/uL (1.0-5.5); LYMPHOCYTES % (AUTO) 2.4 % (20.5-51.5); MEAN CORPUSCULAR HEMOGLOBIN 33 pg (27-31); MEAN CORPUSCULAR HGB CONC 34 % (32-36); MEAN CORPUSCULAR VOLUME 95 fL (79.0-98.0); MONOCYTES # (AUTO) 1.8 K/uL (0.0-1.0); MONOCYTES % (AUTO) 6.9 % (1.7-9.3); NEUTROPHILS # (AUTO) 22.9 K/uL (1.8-7.7); NEUTROPHILS % (AUTO) 90.6 % (40.0-70.0); PLATELET COUNT (AUTO) 133 K/uL (130-430); RED BLOOD CELL COUNT(AUTO) 4.31 MIL/uL (4.2-6.2); RED CELL DISTRIBUTION WIDTH 12.9 % (9.0-15.0); WHITE BLOOD COUNT (AUTO) 25.3 K/uL (4.8-10.8)
[2023-09-17 05:20] LABS: ANION GAP 6 (5-15); CALCIUM 10.1 mg/dL (8.4-11.0); CARBON DIOXIDE 35 mmol/L (23-29); CHLORIDE 107 mmol/L (98-107); CREATININE 1.37 mg/dL (0.55-1.30); GLUCOSE 126 mg/dL (74-106); POTASSIUM 3.7 mmol/L (3.5-5.1); SODIUM SERUM 148 mmol/L (136-145); UREA NITROGEN, BLOOD 46 mg/dL (8-21)
[2023-09-17] MEDS: BUDESONIDE 0.5 MG/2 ML AMPUL.NEB INH SCH ×2 (07:51→22:43)
[2023-09-17] MEDS: CHOLECALCIFEROL (VITAMIN D3) 2,000 UNIT TABLET PO SCH ×2 (09:00→10:31)
[2023-09-17] MEDS: predniSONE 20 MG TABLET PO SCH ×2 (09:00→10:31)
[2023-09-17] MEDS: LISINOPRIL 10 MG TABLET (PRINIVIL) PO SCH ×2 (09:00→10:32)
[2023-09-17] MEDS: TAMSULOSIN HCL 0.4 MG CAP PO SCH ×2 (09:00→10:31)
[2023-09-17] MEDS: ASCORBIC ACID 500 MG TABLET PO SCH ×3 (09:00→21:00)
[2023-09-17] MEDS ORDERED: NS 500 ML IV ONE (15:15)
[2023-09-17] MEDS: FAMOTIDINE PF 20 MG/2 ML VIAL IVP SCH (17:26)
[2023-09-17] MEDS: NACL 0.9% 1,000 ML IV SCH (17:28)
[2023-09-17 18:29] LABS: BILIRUBIN,URINE NEGATIVE (NEGATIVE); CLARITY/URINE CLEAR (CLEAR); COLOR,URINE YELLOW (YELLOW); GLUCOSE,URINE NEGATIVE (NEGATIVE); KETONES,URINE NEGATIVE (NEGATIVE); LEUKOCYTE ESTERASE ,URINE NEGATIVE (NEGATIVE); NITRITE, URINE NEGATIVE (NEGATIVE); PROTEIN URINE TRACE (NEGATIVE); UROBILINOGEN,URINE 0.2 (0.2-1.0)
[2023-09-17 18:32] LABS: BLOOD, URINE TRACE (NEGATIVE)
[2023-09-17 19:00] LABS: BACTERIA,URINE FEW /HPF (None Seen); WBC,URINE 0-3 /HPF (0-3)
[2023-09-17] MEDS: MIRTAZAPINE 15 MG TABLET PO SCH (21:00)
[2023-09-18] VITALS (10 sets, daily range): BP systolic 111–157; PULSE 88–105; RESP 16–20; TEMP 98.3–99.4; O2SAT 92–100
[2023-09-18] MEDS: IPRATROPIUM/ALBUTEROL SULFATE 3 ML AMPUL.NEB (DUONEB) INH SCH ×6 (03:11→23:11)
[2023-09-18] MEDS: NACL 0.9% 1,000 ML IV SCH (05:02)
[2023-09-18] MEDS: PIPERACILLIN/TAZO 2.25G/DEX-IS 50 ML IV SCH ×3 (05:56→17:18)
[2023-09-18 07:21] LABS: HEMOGLOBIN 13.8 g/dL (14.0-18.0); MEAN CORPUSCULAR HGB CONC 33 % (32-36); PLATELET COUNT (AUTO) 100 K/uL (130-430)
[2023-09-18] MEDS: BUDESONIDE 0.5 MG/2 ML AMPUL.NEB INH SCH ×2 (07:44→19:54)
[2023-09-18 07:53] LABS: HEMATOCRIT 42.5 % (36-54); MEAN CORPUSCULAR HEMOGLOBIN 32 pg (27-31); MEAN CORPUSCULAR VOLUME 97 fL (79.0-98.0); RED BLOOD CELL COUNT(AUTO) 4.39 MIL/uL (4.2-6.2); RED CELL DISTRIBUTION WIDTH 13.1 % (9.0-15.0)
[2023-09-18 07:54] LABS: ALANINE AMINOTRANSFERASE 75 U/L (12-78); ALBUMIN 1.9 g/dL (3.4-4.8); ANION GAP 18 (5-15); ASPARTATE AMINOTRANSFERASE 58 U/L (10-37); CALCIUM 8.7 mg/dL (8.4-11.0); CARBON DIOXIDE 22 mmol/L (23-29); CHLORIDE 114 mmol/L (98-107); POTASSIUM 4.4 mmol/L (3.5-5.1); SODIUM SERUM 154 mmol/L (136-145); TOTAL BILIRUBIN 2.3 mg/dL (0.0-1.0); TOTAL PROTEIN, SERUM 4.4 g/dL (6.4-8.3); UREA NITROGEN, BLOOD 43 mg/dL (8-21)
[2023-09-18 08:29] LABS: GLUCOSE 34 mg/dL (74-106)
[2023-09-18] MEDS ORDERED: DEXTROSE 50% JECT 50 ML DISP.SYRIN IVP ONE (08:30)
[2023-09-18 08:50] LABS: WHITE BLOOD COUNT (AUTO) 39.4 K/uL (4.8-10.8)
[2023-09-18] MEDS: TAMSULOSIN HCL 0.4 MG CAP PO SCH (09:00)
[2023-09-18] MEDS: ASCORBIC ACID 500 MG TABLET PO SCH (09:00)
[2023-09-18] MEDS: predniSONE 20 MG TABLET PO SCH (09:00)
[2023-09-18] MEDS: LISINOPRIL 10 MG TABLET (PRINIVIL) PO SCH (09:00)
[2023-09-18] MEDS: CHOLECALCIFEROL (VITAMIN D3) 2,000 UNIT TABLET PO SCH (09:00)
[2023-09-18] MEDS: LORazepam 2 MG/ML VIAL IVP PRN (10:23)
[2023-09-18 10:49] LABS: BAND % (MANUAL) 2 % (0-6); BASOPHILS % (MANUAL) 0 % (0-2); EOSINOPHILS % (MANUAL) 0 % (0-7); LYMPHOCYTES % (MANUAL) 1 % (20-46); MONOCYTES % (MANUAL) 2 % (0-11); PLATELET ESTIMATE DECREASED (ADEQUATE)
[2023-09-18] MEDS: D5/0.45 NS 1,000 ML IV SCH (10:58)
[2023-09-18] MEDS: FAMOTIDINE PF 20 MG/2 ML VIAL IVP SCH (17:18)
[2023-09-19] VITALS (13 sets, daily range): BP systolic 113–152; PULSE 88–103; RESP 15–22; TEMP 97.5–99.2; O2SAT 85–96
[2023-09-19] MEDS: MIRTAZAPINE 15 MG TABLET PO SCH ×2 (00:34→20:48)
[2023-09-19] MEDS: ASCORBIC ACID 500 MG TABLET PO SCH ×3 (00:34→20:48)
[2023-09-19] MEDS: PIPERACILLIN/TAZO 2.25G/DEX-IS 50 ML IV SCH ×5 (00:35→23:56)
[2023-09-19] MEDS: D5/0.45 NS 1,000 ML IV SCH ×2 (03:33→16:00)
[2023-09-19] MEDS: IPRATROPIUM/ALBUTEROL SULFATE 3 ML AMPUL.NEB (DUONEB) INH SCH ×6 (03:39→23:07)
[2023-09-19] MEDS: BUDESONIDE 0.5 MG/2 ML AMPUL.NEB INH SCH ×2 (07:09→19:47)
[2023-09-19 07:53] LABS: BASOPHILS % (AUTO) 0.1 % (0.0-2.0); EOSINOPHILS % (AUTO) 0.1 % (0.0-4.0); HEMATOCRIT 38.3 % (36-54); HEMOGLOBIN 12.9 g/dL (14.0-18.0); LYMPHOCYTES # (AUTO) 0.7 K/uL (1.0-5.5); LYMPHOCYTES % (AUTO) 2.4 % (20.5-51.5); MEAN CORPUSCULAR HEMOGLOBIN 33 pg (27-31); MEAN CORPUSCULAR HGB CONC 34 % (32-36); MEAN CORPUSCULAR VOLUME 97 fL (79.0-98.0); MONOCYTES # (AUTO) 0.8 K/uL (0.0-1.0); MONOCYTES % (AUTO) 2.6 % (1.7-9.3); NEUTROPHILS # (AUTO) 27.6 K/uL (1.8-7.7); PLATELET COUNT (AUTO) 99 K/uL (130-430); RED BLOOD CELL COUNT(AUTO) 3.96 MIL/uL (4.2-6.2); WHITE BLOOD COUNT (AUTO) 29.1 K/uL (4.8-10.8)
[2023-09-19 07:59] LABS: ANION GAP 9 (5-15); CALCIUM 8.8 mg/dL (8.4-11.0); CARBON DIOXIDE 30 mmol/L (23-29); CHLORIDE 117 mmol/L (98-107); CREATININE 1.23 mg/dL (0.55-1.30); GLUCOSE 78 mg/dL (74-106); NEUTROPHILS % (AUTO) 94.8 % (40.0-70.0); SODIUM SERUM 156 mmol/L (136-145); UREA NITROGEN, BLOOD 27 mg/dL (8-21)
[2023-09-19 08:05] LABS: POTASSIUM 2.7 mmol/L (3.5-5.1)
[2023-09-19] MEDS: CHOLECALCIFEROL (VITAMIN D3) 2,000 UNIT TABLET PO SCH (10:19)
[2023-09-19] MEDS: TAMSULOSIN HCL 0.4 MG CAP PO SCH (10:19)
[2023-09-19] MEDS: predniSONE 20 MG TABLET PO SCH (10:19)
[2023-09-19] MEDS: POTASSIUM CHLORIDE 30 MEQ in NS 250 ML IV SCH ×2 (10:20→15:06)
[2023-09-19] MEDS: LISINOPRIL 10 MG TABLET (PRINIVIL) PO SCH (10:20)
[2023-09-19] MEDS: FAMOTIDINE PF 20 MG/2 ML VIAL IVP SCH (17:22)
[2023-09-20] VITALS (14 sets, daily range): BP systolic 107–173; PULSE 85–99; RESP 18–40; TEMP 97.5–99; O2SAT 94–98
[2023-09-20] MEDS: D5/0.45 NS 1,000 ML IV SCH ×3 (01:34→22:24)
[2023-09-20] MEDS: IPRATROPIUM/ALBUTEROL SULFATE 3 ML AMPUL.NEB (DUONEB) INH SCH ×6 (03:19→23:01)
[2023-09-20] MEDS: PIPERACILLIN/TAZO 2.25G/DEX-IS 50 ML IV SCH ×3 (05:06→17:05)
[2023-09-20] MEDS: BUDESONIDE 0.5 MG/2 ML AMPUL.NEB INH SCH ×2 (07:28→19:23)
[2023-09-20 07:45] LABS: BASOPHILS # (AUTO) 0.1 K/uL (0.0-0.2); BASOPHILS % (AUTO) 0.3 % (0.0-2.0); EOSINOPHILS % (AUTO) 0.2 % (0.0-4.0); HEMOGLOBIN 10.9 g/dL (14.0-18.0); LYMPHOCYTES # (AUTO) 0.6 K/uL (1.0-5.5); LYMPHOCYTES % (AUTO) 2.8 % (20.5-51.5); MEAN CORPUSCULAR HEMOGLOBIN 32 pg (27-31); MEAN CORPUSCULAR HGB CONC 33 % (32-36); MEAN CORPUSCULAR VOLUME 97 fL (79.0-98.0); MONOCYTES # (AUTO) 0.5 K/uL (0.0-1.0); MONOCYTES % (AUTO) 2.4 % (1.7-9.3); NEUTROPHILS # (AUTO) 19.2 K/uL (1.8-7.7); PLATELET COUNT (AUTO) 85 K/uL (130-430); RED BLOOD CELL COUNT(AUTO) 3.39 MIL/uL (4.2-6.2); WHITE BLOOD COUNT (AUTO) 20.4 K/uL (4.8-10.8)
[2023-09-20 07:53] LABS: NEUTROPHILS % (AUTO) 94.3 % (40.0-70.0)
[2023-09-20 07:58] LABS: ANION GAP 8 (5-15); CALCIUM 8.7 mg/dL (8.4-11.0); CARBON DIOXIDE 27 mmol/L (23-29); CREATININE 1.02 mg/dL (0.55-1.30); GLUCOSE 171 mg/dL (74-106); SODIUM SERUM 155 mmol/L (136-145); UREA NITROGEN, BLOOD 28 mg/dL (8-21)
[2023-09-20 07:59] LABS: CHLORIDE 120 mmol/L (98-107)
[2023-09-20 08:59] LABS: PHOSPHORUS 2.1 mg/dL (2.7-4.5)
[2023-09-20] MEDS: CHOLECALCIFEROL (VITAMIN D3) 2,000 UNIT TABLET PO SCH ×2 (09:00→09:52)
[2023-09-20] MEDS: LISINOPRIL 10 MG TABLET (PRINIVIL) PO SCH ×2 (09:00→09:53)
[2023-09-20] MEDS: predniSONE 20 MG TABLET PO SCH ×2 (09:00→09:52)
[2023-09-20] MEDS: ASCORBIC ACID 500 MG TABLET PO SCH ×3 (09:00→22:19)
[2023-09-20] MEDS ORDERED: ALBUTEROL SULFATE 0.083% 2.5 MG/3 ML VIAL.NEB INH PRN (09:00)
[2023-09-20] MEDS: TAMSULOSIN HCL 0.4 MG CAP PO SCH ×2 (09:00→09:54)
[2023-09-20] MEDS ORDERED: POTASSIUM CHLORIDE 40 MEQ in 0.45% NS 250 ML IV ONE (10:00)
[2023-09-20] MEDS ORDERED: POTASSIUM CHLORIDE 40 MEQ, LIDOCAINE JECT 2% PF 100 MG 50 MG in NS 250 ML IV ONE (10:30)
[2023-09-20] MEDS ORDERED: FUROSEMIDE 20 MG/2 ML VIAL IVP ONE (12:15)
[2023-09-20] MEDS: ALBUTEROL SULFATE 0.083% 2.5 MG/3 ML VIAL.NEB INH SCH ×2 (12:15→19:00)
[2023-09-20] MEDS: FAMOTIDINE PF 20 MG/2 ML VIAL IVP SCH (17:04)
[2023-09-20] MEDS: MIRTAZAPINE 15 MG TABLET PO SCH ×2 (22:17→22:18)
[2023-09-20] MEDS: guaiFENesin ER 600 MG TAB PO SCH (22:19)
[2023-09-21] VITALS (11 sets, daily range): BP systolic 144–164; PULSE 90–95; RESP 19–24; TEMP 98.4–99.2; O2SAT 92–100
[2023-09-21] MEDS: NYSTATIN 500,000 UNITS/5 ML UDC PO SCH ×4 (00:12→18:35)
[2023-09-21] MEDS: cloNIDine HCL 0.1 MG TABLET PO PRN (00:13)
[2023-09-21] MEDS: ALBUTEROL SULFATE 0.083% 2.5 MG/3 ML VIAL.NEB INH SCH ×4 (01:00→19:25)
[2023-09-21] MEDS: IPRATROPIUM/ALBUTEROL SULFATE 3 ML AMPUL.NEB (DUONEB) INH SCH ×2 (03:35→07:00)
[2023-09-21 06:00] LABS: BASOPHILS % (AUTO) 0.4 % (0.0-2.0); EOSINOPHILS # (AUTO) 0.2 K/uL (0.0-0.4); EOSINOPHILS % (AUTO) 1.6 % (0.0-4.0); HEMATOCRIT 32.1 % (36-54); HEMOGLOBIN 10.8 g/dL (14.0-18.0); LYMPHOCYTES # (AUTO) 0.7 K/uL (1.0-5.5); LYMPHOCYTES % (AUTO) 5.5 % (20.5-51.5); MEAN CORPUSCULAR HEMOGLOBIN 32 pg (27-31); MEAN CORPUSCULAR HGB CONC 34 % (32-36); MEAN CORPUSCULAR VOLUME 97 fL (79.0-98.0); MONOCYTES # (AUTO) 0.5 K/uL (0.0-1.0); MONOCYTES % (AUTO) 3.7 % (1.7-9.3); NEUTROPHILS # (AUTO) 11.2 K/uL (1.8-7.7); NEUTROPHILS % (AUTO) 88.8 % (40.0-70.0); PLATELET COUNT (AUTO) 80 K/uL (130-430); RED BLOOD CELL COUNT(AUTO) 3.32 MIL/uL (4.2-6.2); WHITE BLOOD COUNT (AUTO) 12.6 K/uL (4.8-10.8)
[2023-09-21 06:54] LABS: ALANINE AMINOTRANSFERASE 83 U/L (12-78); ALBUMIN 1.3 g/dL (3.4-4.8); ANION GAP 5 (5-15); ASPARTATE AMINOTRANSFERASE 63 U/L (10-37); CALCIUM 8.1 mg/dL (8.4-11.0); CARBON DIOXIDE 29 mmol/L (23-29); CHLORIDE 116 mmol/L (98-107); CREATININE 0.89 mg/dL (0.55-1.30); GLUCOSE 120 mg/dL (74-106); PHOSPHORUS 1.9 mg/dL (2.7-4.5); SODIUM SERUM 150 mmol/L (136-145); TOTAL BILIRUBIN 1.5 mg/dL (0.0-1.0); TOTAL PROTEIN, SERUM 4.5 g/dL (6.4-8.3); UREA NITROGEN, BLOOD 19 mg/dL (8-21)
[2023-09-21 06:58] LABS: POTASSIUM 2.9 mmol/L (3.5-5.1)
[2023-09-21] MEDS ORDERED: POTASSIUM CHLORIDE 40 MEQ in 0.45% NS 250 ML IV ONE (07:15)
[2023-09-21] MEDS: BUDESONIDE 0.5 MG/2 ML AMPUL.NEB INH SCH ×2 (07:26→19:25)
[2023-09-21] MEDS: LISINOPRIL 10 MG TABLET (PRINIVIL) PO SCH (10:02)
[2023-09-21] MEDS: CHOLECALCIFEROL (VITAMIN D3) 2,000 UNIT TABLET PO SCH (10:03)
[2023-09-21] MEDS: guaiFENesin ER 600 MG TAB PO SCH ×2 (10:04→21:00)
[2023-09-21] MEDS: ASCORBIC ACID 500 MG TABLET PO SCH ×2 (10:04→21:00)
[2023-09-21] MEDS: predniSONE 20 MG TABLET PO SCH (10:04)
[2023-09-21] MEDS: TAMSULOSIN HCL 0.4 MG CAP PO SCH (10:07)
[2023-09-21] MEDS: D5/0.45 NS 1,000 ML IV SCH ×2 (11:12→18:00)
[2023-09-21] MEDS ORDERED: FUROSEMIDE 20 MG/2 ML VIAL IVP ONE (11:45)
[2023-09-21] MEDS: ACETYLCYSTEINE 10% 4 ML VIAL (RT) INH SCH ×2 (12:15→19:25)
[2023-09-21] MEDS ORDERED: ACETYLCYSTEINE 10% 4 ML VIAL (RT) INH SCH (15:00)
[2023-09-21] MEDS: FAMOTIDINE PF 20 MG/2 ML VIAL IVP SCH (18:35)
[2023-09-21] MEDS: FUROSEMIDE 20 MG/2 ML VIAL IVP SCH (21:05)
[2023-09-22] VITALS (10 sets, daily range): BP systolic 116–149; PULSE 76–87; RESP 16–29; TEMP 97.3–98.2; O2SAT 96–99
[2023-09-22] MEDS: NYSTATIN 500,000 UNITS/5 ML UDC PO SCH ×5 (03:23→23:03)
[2023-09-22 05:14] LABS: BASOPHILS % (AUTO) 0.3 % (0.0-2.0); HEMATOCRIT 32.4 % (36-54); HEMOGLOBIN 11.1 g/dL (14.0-18.0); LYMPHOCYTES # (AUTO) 0.6 K/uL (1.0-5.5); LYMPHOCYTES % (AUTO) 4.8 % (20.5-51.5); MEAN CORPUSCULAR HEMOGLOBIN 33 pg (27-31); MEAN CORPUSCULAR HGB CONC 34 % (32-36); MEAN CORPUSCULAR VOLUME 95 fL (79.0-98.0); MONOCYTES # (AUTO) 0.4 K/uL (0.0-1.0); NEUTROPHILS # (AUTO) 11.2 K/uL (1.8-7.7); NEUTROPHILS % (AUTO) 91.9 % (40.0-70.0); PLATELET COUNT (AUTO) 78 K/uL (130-430); RED BLOOD CELL COUNT(AUTO) 3.39 MIL/uL (4.2-6.2); RED CELL DISTRIBUTION WIDTH 12.9 % (9.0-15.0); WHITE BLOOD COUNT (AUTO) 12.2 K/uL (4.8-10.8)
[2023-09-22 05:30] LABS: ALANINE AMINOTRANSFERASE 97 U/L (12-78); ALBUMIN 1.5 g/dL (3.4-4.8); ANION GAP 8 (5-15); ASPARTATE AMINOTRANSFERASE 66 U/L (10-37); CALCIUM 8.2 mg/dL (8.4-11.0); CARBON DIOXIDE 29 mmol/L (23-29); CHLORIDE 112 mmol/L (98-107); CREATININE 0.82 mg/dL (0.55-1.30); GLUCOSE 135 mg/dL (74-106); POTASSIUM 3.3 mmol/L (3.5-5.1); SODIUM SERUM 149 mmol/L (136-145); TOTAL BILIRUBIN 1.2 mg/dL (0.0-1.0); TOTAL PROTEIN, SERUM 4.9 g/dL (6.4-8.3); UREA NITROGEN, BLOOD 22 mg/dL (8-21)
[2023-09-22] MEDS: ALBUTEROL SULFATE 0.083% 2.5 MG/3 ML VIAL.NEB INH SCH ×4 (05:44→19:18)
[2023-09-22] MEDS: ACETYLCYSTEINE 10% 4 ML VIAL (RT) INH SCH ×4 (05:45→19:19)
[2023-09-22] MEDS: D5/0.45 NS 1,000 ML IV SCH ×3 (06:14→15:14)
[2023-09-22 07:05] LABS: ABG O2 SAT% ESTIMATE 96.5 % (94.0-100.0); BLOOD GAS BASE EXCESS 3.5 mmol/L (-3.0-3.0); BLOOD GAS HCO3 26.6 mmol/L (21.0-27.0); BLOOD GAS PCO2 35.7 mmHg (32.0-45.0); BLOOD GAS PO2 78.3 mmHg (75.0-100.0)
[2023-09-22] MEDS: BUDESONIDE 0.5 MG/2 ML AMPUL.NEB INH SCH ×2 (07:19→19:19)
[2023-09-22] MEDS: guaiFENesin ER 600 MG TAB PO SCH ×2 (10:02→20:54)
[2023-09-22] MEDS: TAMSULOSIN HCL 0.4 MG CAP PO SCH (10:03)
[2023-09-22] MEDS: ASCORBIC ACID 500 MG TABLET PO SCH ×2 (10:03→20:54)
[2023-09-22] MEDS: LISINOPRIL 10 MG TABLET (PRINIVIL) PO SCH (10:03)
[2023-09-22] MEDS: CHOLECALCIFEROL (VITAMIN D3) 2,000 UNIT TABLET PO SCH (10:04)
[2023-09-22] MEDS: predniSONE 20 MG TABLET PO SCH (10:04)
[2023-09-22] MEDS: FUROSEMIDE 20 MG/2 ML VIAL IVP SCH ×2 (11:17→22:53)
[2023-09-22] MEDS ORDERED: POTASSIUM CHLORIDE 20 MEQ TABLET.ER PO ONE (14:30)
[2023-09-22] MEDS: FAMOTIDINE PF 20 MG/2 ML VIAL IVP SCH (17:51)
[2023-09-22] MEDS: MIRTAZAPINE 15 MG TABLET PO SCH (20:54)
[2023-09-23] VITALS (12 sets, daily range): BP systolic 112–156; PULSE 74–88; RESP 18–22; TEMP 98.1–99.3; O2SAT 93–98
[2023-09-23] MEDS: LORazepam 2 MG/ML VIAL IVP PRN (00:20)
[2023-09-23] MEDS: ALBUTEROL SULFATE 0.083% 2.5 MG/3 ML VIAL.NEB INH SCH ×4 (00:55→20:01)
[2023-09-23] MEDS: ACETYLCYSTEINE 10% 4 ML VIAL (RT) INH SCH ×4 (00:56→20:02)
[2023-09-23 04:50] LABS: BASOPHILS # (AUTO) 0.1 K/uL (0.0-0.2); BASOPHILS % (AUTO) 0.5 % (0.0-2.0); EOSINOPHILS # (AUTO) 0.1 K/uL (0.0-0.4); EOSINOPHILS % (AUTO) 0.6 % (0.0-4.0); HEMATOCRIT 30.3 % (36-54); HEMOGLOBIN 10.4 g/dL (14.0-18.0); LYMPHOCYTES # (AUTO) 0.9 K/uL (1.0-5.5); LYMPHOCYTES % (AUTO) 7.8 % (20.5-51.5); MEAN CORPUSCULAR HEMOGLOBIN 32 pg (27-31); MEAN CORPUSCULAR HGB CONC 34 % (32-36); MEAN CORPUSCULAR VOLUME 95 fL (79.0-98.0); MONOCYTES # (AUTO) 0.4 K/uL (0.0-1.0); MONOCYTES % (AUTO) 3.7 % (1.7-9.3); NEUTROPHILS # (AUTO) 9.6 K/uL (1.8-7.7); NEUTROPHILS % (AUTO) 87.4 % (40.0-70.0); PLATELET COUNT (AUTO) 86 K/uL (130-430); RED BLOOD CELL COUNT(AUTO) 3.21 MIL/uL (4.2-6.2); RED CELL DISTRIBUTION WIDTH 12.7 % (9.0-15.0)
[2023-09-23 05:12] LABS: ALANINE AMINOTRANSFERASE 99 U/L (12-78); ALBUMIN 1.4 g/dL (3.4-4.8); ANION GAP 7 (5-15); ASPARTATE AMINOTRANSFERASE 65 U/L (10-37); CALCIUM 7.7 mg/dL (8.4-11.0); CARBON DIOXIDE 28 mmol/L (23-29); CHLORIDE 111 mmol/L (98-107); CREATININE 0.64 mg/dL (0.55-1.30); GLUCOSE 104 mg/dL (74-106); PHOSPHORUS 1.7 mg/dL (2.7-4.5); SODIUM SERUM 146 mmol/L (136-145); TOTAL BILIRUBIN 1.2 mg/dL (0.0-1.0); TOTAL PROTEIN, SERUM 4.7 g/dL (6.4-8.3); UREA NITROGEN, BLOOD 17 mg/dL (8-21)
[2023-09-23 05:39] LABS: POTASSIUM 2.5 mmol/L (3.5-5.1)
[2023-09-23] MEDS: NYSTATIN 500,000 UNITS/5 ML UDC PO SCH ×4 (06:00→23:39)
[2023-09-23] MEDS ORDERED: POTASSIUM CHLORIDE 40 MEQ in NS 250 ML IV ONE ×2 (08:00→12:00)
[2023-09-23] MEDS: BUDESONIDE 0.5 MG/2 ML AMPUL.NEB INH SCH ×2 (08:18→20:02)
[2023-09-23] MEDS: TAMSULOSIN HCL 0.4 MG CAP PO SCH (08:59)
[2023-09-23] MEDS: guaiFENesin ER 600 MG TAB PO SCH ×2 (08:59→21:00)
[2023-09-23] MEDS: LISINOPRIL 10 MG TABLET (PRINIVIL) PO SCH (09:00)
[2023-09-23] MEDS: CHOLECALCIFEROL (VITAMIN D3) 2,000 UNIT TABLET PO SCH (09:00)
[2023-09-23] MEDS: predniSONE 5 MG TABLET PO SCH (09:00)
[2023-09-23] MEDS: ASCORBIC ACID 500 MG TABLET PO SCH ×2 (09:00→21:00)
[2023-09-23] MEDS ORDERED: POTASSIUM CHLORIDE 40 MEQ in D5W 250 ML IV ONE (10:00)
[2023-09-23] MEDS: D5/0.45 NS 1,000 ML IV SCH ×2 (10:00→21:03)
[2023-09-23] MEDS: FAMOTIDINE PF 20 MG/2 ML VIAL IVP SCH (17:10)
[2023-09-23] MEDS: MIRTAZAPINE 15 MG TABLET PO SCH (21:00)
[2023-09-24] VITALS (10 sets, daily range): BP systolic 126–149; PULSE 88–100; RESP 16–20; TEMP 97.8–98.1; O2SAT 95–98
[2023-09-24] MEDS: ALBUTEROL SULFATE 0.083% 2.5 MG/3 ML VIAL.NEB INH SCH ×4 (01:21→20:30)
[2023-09-24] MEDS: ACETYLCYSTEINE 10% 4 ML VIAL (RT) INH SCH ×4 (01:23→20:32)
[2023-09-24] MEDS: LORazepam 2 MG/ML VIAL IVP PRN ×2 (04:47→12:26)
[2023-09-24 05:45] LABS: BASOPHILS # (AUTO) 0.1 K/uL (0.0-0.2); BASOPHILS % (AUTO) 0.5 % (0.0-2.0); EOSINOPHILS # (AUTO) 0.1 K/uL (0.0-0.4); EOSINOPHILS % (AUTO) 1.1 % (0.0-4.0); HEMATOCRIT 32.8 % (36-54); HEMOGLOBIN 11.1 g/dL (14.0-18.0); LYMPHOCYTES # (AUTO) 1.4 K/uL (1.0-5.5); LYMPHOCYTES % (AUTO) 11.8 % (20.5-51.5); MEAN CORPUSCULAR HEMOGLOBIN 32 pg (27-31); MEAN CORPUSCULAR HGB CONC 34 % (32-36); MEAN CORPUSCULAR VOLUME 96 fL (79.0-98.0); MONOCYTES # (AUTO) 0.5 K/uL (0.0-1.0); MONOCYTES % (AUTO) 4.3 % (1.7-9.3); NEUTROPHILS # (AUTO) 9.5 K/uL (1.8-7.7); NEUTROPHILS % (AUTO) 82.3 % (40.0-70.0); PLATELET COUNT (AUTO) 117 K/uL (130-430); RED BLOOD CELL COUNT(AUTO) 3.42 MIL/uL (4.2-6.2); RED CELL DISTRIBUTION WIDTH 12.7 % (9.0-15.0); WHITE BLOOD COUNT (AUTO) 11.6 K/uL (4.8-10.8)
[2023-09-24] MEDS: NYSTATIN 500,000 UNITS/5 ML UDC PO SCH ×3 (06:00→18:00)
[2023-09-24 06:09] LABS: PROTHROMBIN TIME 10.3 SECS (9.5-12.5)
[2023-09-24 06:27] LABS: ANION GAP 8 (5-15); CALCIUM 7.8 mg/dL (8.4-11.0); CARBON DIOXIDE 27 mmol/L (23-29); CHLORIDE 113 mmol/L (98-107); GLUCOSE 56 mg/dL (74-106); POTASSIUM 3.9 mmol/L (3.5-5.1); SODIUM SERUM 148 mmol/L (136-145); UREA NITROGEN, BLOOD 15 mg/dL (8-21)
[2023-09-24 06:28] LABS: CREATININE 0.71 mg/dL (0.55-1.30)
[2023-09-24] MEDS: BUDESONIDE 0.5 MG/2 ML AMPUL.NEB INH SCH ×2 (07:19→20:31)
[2023-09-24] MEDS: guaiFENesin ER 600 MG TAB PO SCH ×2 (08:26→21:00)
[2023-09-24] MEDS: TAMSULOSIN HCL 0.4 MG CAP PO SCH (08:26)
[2023-09-24] MEDS: LISINOPRIL 10 MG TABLET (PRINIVIL) PO SCH (08:27)
[2023-09-24] MEDS: predniSONE 5 MG TABLET PO SCH (08:27)
[2023-09-24] MEDS: ASCORBIC ACID 500 MG TABLET PO SCH ×2 (08:27→21:00)
[2023-09-24] MEDS: CHOLECALCIFEROL (VITAMIN D3) 2,000 UNIT TABLET PO SCH (08:27)
[2023-09-24] MEDS: D5/0.45 NS 1,000 ML IV SCH ×2 (09:25→18:15)
[2023-09-24] MEDS: FAMOTIDINE PF 20 MG/2 ML VIAL IVP SCH (18:11)
[2023-09-24] MEDS: MIRTAZAPINE 15 MG TABLET PO SCH (21:00)
[2023-09-25] VITALS (12 sets, daily range): BP systolic 113–164; PULSE 80–96; RESP 16–24; TEMP 96–98.8; O2SAT 92–98
[2023-09-25] MEDS: ALBUTEROL SULFATE 0.083% 2.5 MG/3 ML VIAL.NEB INH SCH ×4 (01:26→20:03)
[2023-09-25] MEDS: ACETYLCYSTEINE 10% 4 ML VIAL (RT) INH SCH ×4 (01:26→20:03)
[2023-09-25] MEDS: D5/0.45 NS 1,000 ML IV SCH ×3 (05:07→22:00)
[2023-09-25] MEDS: NYSTATIN 500,000 UNITS/5 ML UDC PO SCH ×4 (06:00→18:00)
[2023-09-25] MEDS: BUDESONIDE 0.5 MG/2 ML AMPUL.NEB INH SCH ×2 (07:14→20:03)
[2023-09-25] MEDS: guaiFENesin ER 600 MG TAB PO SCH ×2 (09:00→10:04)
[2023-09-25] MEDS: TAMSULOSIN HCL 0.4 MG CAP PO SCH (09:00)
[2023-09-25] MEDS: CHOLECALCIFEROL (VITAMIN D3) 2,000 UNIT TABLET PO SCH (09:00)
[2023-09-25] MEDS: LISINOPRIL 10 MG TABLET (PRINIVIL) PO SCH (09:00)
[2023-09-25] MEDS: predniSONE 5 MG TABLET PO SCH (09:00)
[2023-09-25] MEDS: ASCORBIC ACID 500 MG TABLET PO SCH (09:00)
[2023-09-25] MEDS: LORazepam 2 MG/ML VIAL IVP PRN ×2 (13:33→23:12)
[2023-09-25] MEDS: FAMOTIDINE PF 20 MG/2 ML VIAL IVP SCH (17:00)
[2023-09-25] MEDS: MIRTAZAPINE 15 MG TABLET PO SCH (21:00)
[2023-09-26] VITALS (8 sets, daily range): BP systolic 106–154; PULSE 99–113; RESP 16–18; TEMP 98.1–99.7; O2SAT 94–98
[2023-09-26] MEDS: ALBUTEROL SULFATE 0.083% 2.5 MG/3 ML VIAL.NEB INH SCH ×3 (01:26→14:31)
[2023-09-26] MEDS: ACETYLCYSTEINE 10% 4 ML VIAL (RT) INH SCH ×3 (01:27→14:31)
[2023-09-26] MEDS: guaiFENesin ER 600 MG TAB PO SCH ×3 (01:58→22:31)
[2023-09-26] MEDS: ASCORBIC ACID 500 MG TABLET PO SCH ×3 (01:58→22:31)
[2023-09-26] MEDS: NYSTATIN 500,000 UNITS/5 ML UDC PO SCH ×4 (06:00→18:00)
[2023-09-26 06:23] LABS: BASOPHILS # (AUTO) 0.1 K/uL (0.0-0.2); BASOPHILS % (AUTO) 0.9 % (0.0-2.0); EOSINOPHILS # (AUTO) 0.1 K/uL (0.0-0.4); EOSINOPHILS % (AUTO) 1.5 % (0.0-4.0); HEMATOCRIT 31.4 % (36-54); HEMOGLOBIN 10.7 g/dL (14.0-18.0); LYMPHOCYTES # (AUTO) 1.4 K/uL (1.0-5.5); MEAN CORPUSCULAR HEMOGLOBIN 33 pg (27-31); MEAN CORPUSCULAR HGB CONC 34 % (32-36); MEAN CORPUSCULAR VOLUME 96 fL (79.0-98.0); MONOCYTES # (AUTO) 0.4 K/uL (0.0-1.0); NEUTROPHILS # (AUTO) 7.3 K/uL (1.8-7.7); NEUTROPHILS % (AUTO) 78.6 % (40.0-70.0); PLATELET COUNT (AUTO) 203 K/uL (130-430); RED BLOOD CELL COUNT(AUTO) 3.29 MIL/uL (4.2-6.2); RED CELL DISTRIBUTION WIDTH 12.9 % (9.0-15.0); WHITE BLOOD COUNT (AUTO) 9.3 K/uL (4.8-10.8)
[2023-09-26 07:03] LABS: ALANINE AMINOTRANSFERASE 74 U/L (12-78); ALBUMIN 1.4 g/dL (3.4-4.8); ANION GAP 8 (5-15); ASPARTATE AMINOTRANSFERASE 51 U/L (10-37); CARBON DIOXIDE 27 mmol/L (23-29); CHLORIDE 111 mmol/L (98-107); CREATININE 0.54 mg/dL (0.55-1.30); GLUCOSE 97 mg/dL (74-106); POTASSIUM 3.2 mmol/L (3.5-5.1); SODIUM SERUM 146 mmol/L (136-145); TOTAL BILIRUBIN 1.8 mg/dL (0.0-1.0); TOTAL PROTEIN, SERUM 4.4 g/dL (6.4-8.3); UREA NITROGEN, BLOOD 9 mg/dL (8-21)
[2023-09-26] MEDS: BUDESONIDE 0.5 MG/2 ML AMPUL.NEB INH SCH (08:18)
[2023-09-26] MEDS: PANTOPRAZOLE SODIUM 40 MG/VIAL (PROTONIX) IVP SCH (09:33)
[2023-09-26] MEDS: CHOLECALCIFEROL (VITAMIN D3) 2,000 UNIT TABLET PO SCH (09:33)
[2023-09-26] MEDS: TAMSULOSIN HCL 0.4 MG CAP PO SCH (09:33)
[2023-09-26] MEDS: predniSONE 5 MG TABLET PO SCH (09:34)
[2023-09-26] MEDS: LISINOPRIL 10 MG TABLET (PRINIVIL) PO SCH (09:34)
[2023-09-26] MEDS: FAMOTIDINE PF 20 MG/2 ML VIAL IVP SCH (17:49)
[2023-09-26] MEDS: D5/0.45 NS 1,000 ML IV SCH ×2 (17:51→18:52)
[2023-09-26] MEDS: MIRTAZAPINE 15 MG TABLET PO SCH (22:30)
[2023-09-27] VITALS (12 sets, daily range): BP systolic 95–129; PULSE 89–102; RESP 16–22; TEMP 98.1–99.4; O2SAT 94–99
[2023-09-27] MEDS: NYSTATIN 500,000 UNITS/5 ML UDC PO SCH ×2 (00:35→05:36)
[2023-09-27] MEDS: ALBUTEROL SULFATE 0.083% 2.5 MG/3 ML VIAL.NEB INH SCH ×5 (01:48→20:57)
[2023-09-27] MEDS: BUDESONIDE 0.5 MG/2 ML AMPUL.NEB INH SCH ×3 (01:49→20:58)
[2023-09-27] MEDS: ACETYLCYSTEINE 10% 4 ML VIAL (RT) INH SCH ×5 (01:49→20:57)
[2023-09-27] MEDS: D5/0.45 NS 1,000 ML IV SCH ×3 (05:37→20:31)
[2023-09-27] MEDS ORDERED: POTASSIUM CHLORIDE 20 MEQ/PKT PACKET PO ONE (08:45)
[2023-09-27] MEDS: PANTOPRAZOLE SODIUM 40 MG/VIAL (PROTONIX) IVP SCH ×2 (10:09→10:10)
[2023-09-27] MEDS: guaiFENesin ER 600 MG TAB PO SCH ×2 (10:10→20:30)
[2023-09-27] MEDS: LISINOPRIL 10 MG TABLET (PRINIVIL) PO SCH (10:10)
[2023-09-27] MEDS: CHOLECALCIFEROL (VITAMIN D3) 2,000 UNIT TABLET PO SCH (10:10)
[2023-09-27] MEDS: ASCORBIC ACID 500 MG TABLET PO SCH ×2 (10:11→20:30)
[2023-09-27] MEDS: TAMSULOSIN HCL 0.4 MG CAP PO SCH (10:11)
[2023-09-27] MEDS: predniSONE 5 MG TABLET PO SCH (10:11)
[2023-09-27] MEDS: FAMOTIDINE PF 20 MG/2 ML VIAL IVP SCH (17:00)
[2023-09-27] MEDS: MIRTAZAPINE 15 MG TABLET PO SCH (20:30)
[2023-09-28] VITALS: BP_SYST 117; PULSE 95; RESP 16; TEMP 98; O2SAT 98
[2023-09-28 01:30] VITALS: O2SAT 96
[2023-09-28] MEDS: ACETYLCYSTEINE 10% 4 ML VIAL (RT) INH SCH ×2 (02:58→07:17)
[2023-09-28] MEDS: ALBUTEROL SULFATE 0.083% 2.5 MG/3 ML VIAL.NEB INH SCH ×2 (02:58→07:16)
[2023-09-28 07:16] VITALS: O2SAT 98
[2023-09-28] MEDS: BUDESONIDE 0.5 MG/2 ML AMPUL.NEB INH SCH (07:17)
[2023-09-28 08:10] LABS: BASOPHILS % (AUTO) 0.5 % (0.0-2.0); EOSINOPHILS # (AUTO) 0.2 K/uL (0.0-0.4); EOSINOPHILS % (AUTO) 1.7 % (0.0-4.0); HEMATOCRIT 26.6 % (36-54); HEMOGLOBIN 9.3 g/dL (14.0-18.0); LYMPHOCYTES # (AUTO) 1.1 K/uL (1.0-5.5); LYMPHOCYTES % (AUTO) 11.1 % (20.5-51.5); MEAN CORPUSCULAR HEMOGLOBIN 33 pg (27-31); MEAN CORPUSCULAR HGB CONC 35 % (32-36); MEAN CORPUSCULAR VOLUME 95 fL (79.0-98.0); MONOCYTES # (AUTO) 0.8 K/uL (0.0-1.0); MONOCYTES % (AUTO) 7.8 % (1.7-9.3); NEUTROPHILS # (AUTO) 7.7 K/uL (1.8-7.7); NEUTROPHILS % (AUTO) 78.9 % (40.0-70.0); PLATELET COUNT (AUTO) 346 K/uL (130-430); RED BLOOD CELL COUNT(AUTO) 2.79 MIL/uL (4.2-6.2); RED CELL DISTRIBUTION WIDTH 13.1 % (9.0-15.0); WHITE BLOOD COUNT (AUTO) 9.8 K/uL (4.8-10.8)
[2023-09-28 08:13] VITALS: BP_SYST 117; PULSE 98; RESP 22; TEMP 98; O2SAT 98
[2023-09-28 08:28] LABS: ALANINE AMINOTRANSFERASE 52 U/L (12-78); ALBUMIN 1.3 g/dL (3.4-4.8); ANION GAP 5 (5-15); ASPARTATE AMINOTRANSFERASE 34 U/L (10-37); CALCIUM 8.2 mg/dL (8.4-11.0); CARBON DIOXIDE 26 mmol/L (23-29); CHLORIDE 113 mmol/L (98-107); CREATININE 0.61 mg/dL (0.55-1.30); GLUCOSE 100 mg/dL (74-106); POTASSIUM 3.9 mmol/L (3.5-5.1); SODIUM SERUM 144 mmol/L (136-145); TOTAL BILIRUBIN 1.1 mg/dL (0.0-1.0); TOTAL PROTEIN, SERUM 5.2 g/dL (6.4-8.3); UREA NITROGEN, BLOOD 11 mg/dL (8-21)
== END 2023-09-28 08:58 | disposition hospice, home (50) | DRG 871 ==
LOC: SED 15:06 → STU 17:33 → SMU 09-13 11:33 → STU 09-23 23:32
PROVIDERS: ADMIT Internal Medicine; ATTEND Internal Medicine
PROC: XW033E5 Introduction of Remdesivir Anti-infective into Peripheral Vein, Percutaneous Approach, New Technology Group 5 (ICD-10-PCS; 2023-09-06)
PROC: 05HY33Z Insertion of Infusion Device into Upper Vein, Percutaneous Approach (ICD-10-PCS; 2023-09-08)
PROC: B54MZZA Ultrasonography of Right Upper Extremity Veins, Guidance (ICD-10-PCS; 2023-09-08)
PROC: 05H933Z Insertion of Infusion Device into Right Brachial Vein, Percutaneous Approach (ICD-10-PCS; 2023-09-15)
PROC: B54MZZA Ultrasonography of Right Upper Extremity Veins, Guidance (ICD-10-PCS; 2023-09-15)
PROC: 4A10X4Z Monitoring of Central Nervous Electrical Activity, External Approach (ICD-10-PCS; principal; 2023-09-24)
DX: A41.9 Sepsis, unspecified organism (principal); I63.9 Cerebral infarction, unspecified; U07.1 COVID-19; J12.82 Pneumonia due to coronavirus disease 2019; J96.01 Acute respiratory failure with hypoxia; J44.1 Chronic obstructive pulmonary disease with (acute) exacerbation; E87.0 Hyperosmolality and hypernatremia; J44.0 Chronic obstructive pulmonary disease with (acute) lower respiratory infection; G93.49 Other encephalopathy; J90 Pleural effusion, not elsewhere classified; G93.1 Anoxic brain damage, not elsewhere classified; E44.0 Moderate protein-calorie malnutrition; I25.10 Atherosclerotic heart disease of native coronary artery without angina pectoris; I10 Essential (primary) hypertension; E87.6 Hypokalemia; N40.1 Benign prostatic hyperplasia with lower urinary tract symptoms; Z74.01 Bed confinement status; Z99.81 Dependence on supplemental oxygen; Z90.49 Acquired absence of other specified parts of digestive tract; Z90.2 Acquired absence of lung [part of]; Z87.891 Personal history of nicotine dependence; Z86.73 Personal history of transient ischemic attack (TIA), and cerebral infarction without residual deficits; Z68.24 Body mass index [BMI] 24.0-24.9, adult
CPT/HCPCS: 36415; 36600; 70450-TC; 71045; 71250-TC; 74018; 76376; 76700; 78226; 80048; 80053; 80061; 80076; 81000; 81001; 81015; 82728; 82803; 82962; 83605; 83615; 83735; 83880; 84100; 84443; 84484; 85007; 85025; 85027; 85610; 85730; 87040; 87086; 92610-GN; 93005; 93306; 94640; 94664; 94760; 95816; 97110-GP; 97112-GP; 97116-GP; 97530-GP; 99285; A9537; C9113; G0378; J0456; J0696; J1030; J1940; J1956; J2060; J2543; J2930; J3475; J3480; J3490; J7050; J7060; J7512; J7608; J7626